=== PATIENT | female | born 1995 | race African-American/Black ===

== ENCOUNTER 2024-03-18 12:25 | Emergency (ER) | payer BC ==
[2024-03-18 12:35] VITALS: BP 125/74; PULSE 91; RESP 16; TEMP 97.7; BMI 36.6
[2024-03-18 13:21] LABS: BASO % 0.4 % (0-2.0); EOS % 2.9 % (0-4.5); HEMATOCRIT 38.8 % (32.4-45.2); HEMOGLOBIN 12.9 GM/dL (10.7-15.3); MCH 28.3 pg (25.7-33.7); MCHC 33.3 g/dl (32.0-36.0); MEAN CELL VOLUME 85.1 fl (80-96); MEAN PLT VOLUME 7.6 fl (7.5-11.1); MONO % 8.9 % (3.8-10.2); NEUT % 49.8 % (42.8-82.8); PH,URINE 6.5 (5.0-8.0); PLATELET COUNT 289 10^3/uL (134-434); RBC 4.56 M/mm3 (3.60-5.2); RDW 12.9 % (11.6-15.6); URINE APPEARANCE CLEAR; URINE BILIRUBIN NEGATIVE (NEGATIVE); URINE COLOR YELLOW; URINE GLUCOSE (UA) NEGATIVE (NEGATIVE); URINE KETONE NEGATIVE (NEGATIVE); URINE LEUK ESTERASE NEGATIVE (NEGATIVE); URINE NITRITE NEGATIVE (NEGATIVE); URINE PROTEIN NEGATIVE (NEGATIVE); WHITE BLOOD COUNT 5.8 K/mm3 (4.0-10.0)
[2024-03-18 13:25] LABS: HCG,QUALITATIVE URINE Positive
[2024-03-18 13:27] LABS: INR 1.15 (0.83-1.09); PROTHROMBIN TIME (PATIENT) 13.2 SEC (9.7-13.0)
[2024-03-18 13:29] LABS: ACTIVATED PTT 31.3 SECONDS (25.2-36.5)
[2024-03-18 13:43] LABS: POTASSIUM 4.2 mmol/L (3.5-5.1)
[2024-03-18 13:45] LABS: CALCIUM 9.2 mg/dL (8.5-10.1)
[2024-03-18 13:46] LABS: ALBUMIN 3.9 g/dl (3.4-5.0); BLOOD UREA NITROGEN 12.5 mg/dL (7-18)
[2024-03-18 13:51] LABS: BILIRUBIN,TOTAL 0.6 mg/dL (0.2-1); TOT PROT 7.9 g/dl (6.4-8.2)
== END 2024-03-18 16:20 | disposition home or self-care (01) ==
LOC: JER 12:25
DX: O03.9 Complete or unspecified spontaneous abortion without complication (principal)
CPT/HCPCS: 36415; 76817-TC; 80053; 81003; 83690; 84702; 84703; 85025; 85610; 85730; 86850; 86900; 86901; 87086; 99284-25

== ENCOUNTER 2024-07-29 12:23 | Emergency (ER) | payer BC, OTHER ==
[2024-07-29 12:38] VITALS: BP 129/79; PULSE 60; RESP 19; TEMP 98.6; BMI 36.0
== END 2024-07-29 15:24 | disposition home or self-care (01) ==
LOC: JER 12:23
DX: R07.89 Other chest pain (principal)
CPT/HCPCS: 71046-TC-FY; 93005; 93010; 99284-25